=== PATIENT | male | born 1985 | race Caucasian/White ===

== ENCOUNTER 2018-12-09 08:39 | Emergency (ER) | payer MEDICAID ==
[2018-12-09] MEDS: LIDOCAINE 1% (MDV) 20 ML INJ SC (09:15)
[2018-12-09] MEDS: DIPHTH/TET/ACEL PERTUSS (ADULT) 0.5 ML VIAL IM* (09:18)
[2018-12-09] MEDS ORDERED: TETANUS IMMUNE GLOB 250 UNIT SYG IM (09:30)
== END 2018-12-09 10:06 | disposition home or self-care (01) ==
LOC: FTE 10:06
DX: S81.812A Laceration without foreign body, left lower leg, initial encounter (principal); F17.210 Nicotine dependence, cigarettes, uncomplicated; W25.XXXA Contact with sharp glass, initial encounter; Y92.9 Unspecified place or not applicable; Z23 Encounter for immunization
CPT/HCPCS: 12002; 90471; 90715; 99283-25